=== PATIENT | female | born 1995 | race Caucasian/White ===

== ENCOUNTER 2020-11-30 14:34 | Emergency (ER) | payer OTHER ==
[~2020-11-30 14:34] MED LIST: AMOXICILLIN500 M1 PO; COLACE 100MG C100 MG PO; IBUPROFEN600 MG PO; IRON325 M1 PO; LORTAB 5-325 M1 EACH PO
[2020-11-30] MEDS ORDERED: TORADOL 10 MG T10 MG PO (15:24)
[2020-11-30] MEDS ORDERED: LIDOCAINE HCL10 ML MM (15:24)
[2020-11-30] MEDS ORDERED: PENVEE K 500 M500 MG PO (15:24)
== END 2020-11-30 16:00 | disposition home or self-care (01) ==
LOC: ER1 14:34
DX: K02.9 Dental caries, unspecified (principal); F17.200 Nicotine dependence, unspecified, uncomplicated
CPT/HCPCS: 99282; J1885